=== PATIENT | female | born 1995 | race Two or more races ===

== ENCOUNTER 2020-08-12 20:27 | Outpatient (CLI) | payer OTHER ==
[2020-08-12 20:30] VITALS: BP 126/79
== END 2020-08-12 22:05 | disposition home or self-care (01) ==
LOC: LDOP 20:27
PROVIDERS: ATTEND Student in an Organized Health Care Education/Training Program
DX: O26.893 Other specified pregnancy related conditions, third trimester (principal); R10.9 Unspecified abdominal pain; Z3A.38 38 weeks gestation of pregnancy
CPT/HCPCS: 59025

== ENCOUNTER 2020-08-13 04:01 | Inpatient (IN) | payer OTHER ==
[~2020-08-13] VITALS: Ht 170.2 cm; Wt 132.0 kg
[2020-08-13] MEDS ORDERED: CALCIUM CARBONATE 500 MG TAB.CHEW ONE (04:19)
[2020-08-13] MEDS ORDERED: CALCIUM CARBONATE 500 MG TAB.CHEW PO PRN ×2 (04:30)
[2020-08-13] MEDS ORDERED: TERBUTALINE 1 MG/ML, 1ML SQ PRN (05:30)
[2020-08-13] MEDS ORDERED: ALUMINUM/MAG/SIMETHICONE 30 ML UDC PO PRN (05:30)
[2020-08-13] MEDS ORDERED: FENTANYL PF 100 MCG/2ML IV PRN (05:30)
[2020-08-13] MEDS ORDERED: OXYTOCIN 30U/ 0.9% NaCL 500ML 500 ML IV ONE (05:30)
[2020-08-13] MEDS ORDERED: METOCLOPRAMIDE 5 MG/ML, 2ML IVPush PRN (05:30)
[2020-08-13] MEDS ORDERED: ONDANSETRON 2MG/ML, 2ML IVPush PRN (05:30)
[2020-08-13] MEDS ORDERED: D5%-LACTATED RINGERS 1,000 ML IV SCH (05:30)
[2020-08-13] MEDS ORDERED: FENTANYL PF 100 MCG/2ML IVPush PRN (05:30)
[2020-08-13] MEDS ORDERED: TERBUTALINE 1 MG/ML, 1ML IVPush PRN (05:30)
[2020-08-13] MEDS ORDERED: SODIUM CITRATE/CITRIC ACID 30 ML UDC PO PRN (05:30)
[2020-08-13] MEDS ORDERED: NEWBORN KIT ONE (05:53)
[2020-08-13] MEDS ORDERED: LIDOCAINE 1%, 20ML ONE (05:53)
[2020-08-13] MEDS ORDERED: OXYTOCIN 30U/ 0.9% NaCL 500ML 500 ML ONE ×2 (05:53→07:23)
[2020-08-13] MEDS ORDERED: MISOPROSTOL 200 MCG TABLET ONE (05:53)
[2020-08-13] MEDS ORDERED: FENTANYL PF 100 MCG/2ML ONE (06:22)
[2020-08-13 06:23] LABS: BASOPHILS % (AUTO) 1 % (0-1); EOSINOPHILS % (AUTO) 1 % (1-7); LYMPHOCYTES % (AUTO) 25 % (22-44); MEAN CORPUSCULAR HGB CONC 33.7 g/dL (32.4-35.8); MEAN PLATELET VOLUME 9.3 fL (7.4-10.4); MONOCYTES % (AUTO) 6 % (2-9); NEUTROPHILS % (AUTO) 67 % (42-75); PLATELET COUNT 222 x10^3/uL (130-400); RED BLOOD COUNT 3.68 x10^6/uL (3.82-5.3); RED CELL DISTRIBUTION WIDTH 14.2 % (9.6-15.2)
[2020-08-13 06:25] LABS: MD NO
[2020-08-13] MEDS ORDERED: FENTANYL/BUPIV./NS/PF 250 ML EPIDCONT ONE (06:50)
[2020-08-13] MEDS ORDERED: ONDANSETRON 2MG/ML, 2ML ONE (07:23)
[2020-08-13] MEDS: LACTATED RINGERS 1,000 ML IV SCH ×2 (07:47→08:34)
[2020-08-13] MEDS ORDERED: OXYTOCIN 30U/ 0.9% NaCL 500ML 500 ML IV PRN (09:00)
[2020-08-13] MEDS ORDERED: EPHEDRINE 50 MG/ML, 1ML IVPush PRN (09:30)
[2020-08-13] MEDS ORDERED: LACTATED RINGERS 1,000 ML IVBOLUS PRN (09:30)
[2020-08-13] MEDS ORDERED: NALOXONE 0.4 MG/ML, 1ML IVPush PRN (09:30)
[2020-08-13] MEDS ORDERED: LACTATED RINGERS 1,000 ML IV SCH (09:30)
[2020-08-13] MEDS ORDERED: FENTANYL/BUPIV./NS/PF 250 ML EPIDCONT SCH (09:30)
[2020-08-13] MEDS ORDERED: SIMETHICONE 80 MG CHEW TAB PO PRN (16:00)
[2020-08-13] MEDS ORDERED: CARBOPROST TROMETHAMINE 250 MCG/ML, 1ML IM PRN (16:00)
[2020-08-13] MEDS ORDERED: MISOPROSTOL 200 MCG TABLET PR PRN (16:00)
[2020-08-13] MEDS: OXYTOCIN 30U/ 0.9% NaCL 500ML 500 ML IV SCH (16:00)
[2020-08-13] MEDS ORDERED: METHYLERGONOVINE 0.2 MG/ML IM PRN (16:00)
[2020-08-13] MEDS ORDERED: OXYcodone/APAP 5/325MG TABLET PO PRN (16:00)
[2020-08-13] MEDS ORDERED: OXYTOCIN 10 UNITS/ML, 1ML IM PRN (16:00)
[2020-08-13] MEDS ORDERED: METOCLOPRAMIDE 5 MG/ML, 2ML IV PRN (16:00)
[2020-08-13] MEDS ORDERED: ACETAMINOPHEN 325 MG TABLET PO PRN ×2 (16:00)
[2020-08-13] MEDS ORDERED: ONDANSETRON 2MG/ML, 2ML IV PRN (16:00)
[2020-08-13] MEDS ORDERED: DOCUSATE 100 MG CAPSULE PO PRN (16:00)
[2020-08-13] MEDS ORDERED: OXYcodone/APAP 5/325MG TABLET ONE (16:07)
[2020-08-13] MEDS ORDERED: IBUPROFEN 600 MG TABLET ONE (16:07)
[2020-08-13] MEDS: OXYcodone/APAP 5/325MG TABLET PO PRN ×2 (16:09→21:55)
[2020-08-13] MEDS: IBUPROFEN 600 MG TABLET PO PRN ×2 (16:10→21:55)
[2020-08-13 18:11] VITALS: BP 122/80
[2020-08-13 19:10] VITALS: BP 113/69
[2020-08-14] VITALS: BP 102/64
[2020-08-14 01:22] LABS: BASOPHILS % (AUTO) 0 % (0-1); EOSINOPHILS % (AUTO) 1 % (1-7); LYMPHOCYTES % (AUTO) 15 % (22-44); MEAN CORPUSCULAR HEMOGLOBIN 32.9 pg (27.0-34.8); MEAN CORPUSCULAR HGB CONC 33.1 g/dL (32.4-35.8); MEAN PLATELET VOLUME 9.3 fL (7.4-10.4); MONOCYTES % (AUTO) 5 % (2-9); NEUTROPHILS % (AUTO) 79 % (42-75); PLATELET COUNT 200 x10^3/uL (130-400); RED BLOOD COUNT 3.38 x10^6/uL (3.82-5.3); RED CELL DISTRIBUTION WIDTH 14.3 % (9.6-15.2)
[2020-08-14 01:33] LABS: MD NO
[2020-08-14] MEDS: OXYTOCIN 30U/ 0.9% NaCL 500ML 500 ML IV SCH (02:00)
[2020-08-14 04:00] VITALS: BP 119/80
[2020-08-14] MEDS: OXYcodone/APAP 5/325MG TABLET PO PRN ×2 (06:16→14:51)
[2020-08-14] MEDS: IBUPROFEN 600 MG TABLET PO PRN ×2 (06:16→12:14)
[2020-08-14] MEDS ORDERED: OXYC-302 PO (07:37)
[2020-08-14] MEDS ORDERED: IBUP-1222 PO (07:37)
[2020-08-14 08:00] VITALS: BP 113/78
[2020-08-14] MEDS ORDERED: PRENATAL VIT/IRON/FA 1 EACH TABLET PO SCH (09:00)
== END 2020-08-14 17:15 | disposition home or self-care (01) | DRG 807 ==
LOC: LDOP 04:01 → LDIP 05:30 → 2NW 17:40
PROVIDERS: ADMIT Student in an Organized Health Care Education/Training Program; ATTEND Student in an Organized Health Care Education/Training Program
PROC: 10E0XZZ Delivery of Products of Conception, External Approach (ICD-10-PCS; principal; 2020-08-13)
PROC: 3E0S3BZ Introduction of Anesthetic Agent into Epidural Space, Percutaneous Approach (ICD-10-PCS; 2020-08-13)
PROC: 00HU33Z Insertion of Infusion Device into Spinal Canal, Percutaneous Approach (ICD-10-PCS; 2020-08-13)
PROC: 0UQMXZZ Repair Vulva, External Approach (ICD-10-PCS; 2020-08-13)
DX: O99.214 Obesity complicating childbirth (principal); Z37.0 Single live birth; F32.9 Major depressive disorder, single episode, unspecified; E66.01 Morbid (severe) obesity due to excess calories; O69.1XX0 Labor and delivery complicated by cord around neck, with compression, not applicable or unspecified; O71.82 Other specified trauma to perineum and vulva; O99.344 Other mental disorders complicating childbirth; Z3A.38 38 weeks gestation of pregnancy; Z80.0 Family history of malignant neoplasm of digestive organs; Z82.3 Family history of stroke; Z82.49 Family history of ischemic heart disease and other diseases of the circulatory system; Z83.3 Family history of diabetes mellitus
CPT/HCPCS: 36415; J7121; 85025; 86592; 86850; 86900; 87635; G0378; J2405; J3010; J2590; J7120